=== PATIENT | male | born 1990 | race Caucasian/White ===

== ENCOUNTER 2024-09-16 14:29 | Inpatient (IN) | payer OTHER ==
[2024-09-16 14:47] VITALS: BMI 27.5
[2024-09-16] MEDS ORDERED: guaiFENesin 600 MG TABLET.ER (FP) PO PRN (15:05)
[2024-09-16] MEDS ORDERED: NALOXONE (NARCAN) HCL 4 MG/0.1 ML SPRAY NS PRN (15:05)
[2024-09-16] MEDS ORDERED: POLYETHYLENE GLYCOL (HEALTHYLAX) 3350 17 GM PACKET PO PRN (15:05)
[2024-09-16] MEDS ORDERED: LOPERAMIDE HCL 2 MG CAPSULE PO PRN (15:05)
[2024-09-16] MEDS ORDERED: ACETAMINOPHEN 325 MG TABLET (FP) PO PRN (15:05)
[2024-09-16] MEDS ORDERED: MAGNESIUM HYDROX 2400MG/30ML ORAL SUSPENSION 30 ML CUP PO PRN (15:05)
[2024-09-16] MEDS ORDERED: BENZONATATE 200 MG CAPSULE PO PRN (15:05)
[2024-09-16] MEDS ORDERED: ALBUTEROL SO4 HFA INHALER IH PRN (15:22)
[2024-09-16] MEDS ORDERED: NICOTINE 14 MG/24 HOURS TOPICAL PATCH TD ONE (17:58)
[2024-09-16] MEDS: NICOTINE 14 MG/24 HOURS TOPICAL PATCH TD SCH (18:00)
[2024-09-16] MEDS: PRENATAL VITAMINS W/ FOLIC ACID TABLET (FP) PO SCH (18:01)
[2024-09-16] MEDS: MIRTAZAPINE 15 MG TABLET (FP) PO SCH (21:29)
[2024-09-16] MEDS: THIAMINE 100 MG TABLET PO SCH (21:29)
[2024-09-16] MEDS: BUDESONIDE/FORMETEROL FUMARATE 160/4.5 mcg INHALER IH SCH (21:30)
[2024-09-16] MEDS: MELATONIN 5 MG TABLETS PO SCH (21:31)
[2024-09-17] MEDS: hydrOXYzine PAMOATE 25 MG CAPSULE (FP) PO PRN (09:17)
[2024-09-17 11:03] LABS: HEMATOCRIT 46.8 % (40.1-51.0); HEMOGLOBIN 15.1 g/dL (13.7-17.5); MCHC 32.3 g/dl (32.3-36.5); MEAN CELL VOLUME 99.2 fl (79.0-92.2); MEAN PLT VOLUME 9.3 fl (9.4-12.4); PLATELET COUNT 303 x10^3/uL (163-337); RDW 13.9 % (12.0-15.6)
[2024-09-17 11:04] LABS: POTASSIUM 4.1 mmol/L (3.5-5.1)
[2024-09-17 11:11] LABS: CALCIUM 9.5 mg/dL (8.5-10.1)
[2024-09-17 11:12] LABS: ALBUMIN 3.6 g/dl (3.4-5.0)
[2024-09-17 11:15] LABS: BILIRUBIN,TOTAL 0.3 mg/dL (0.2-1)
[2024-09-17 12:09] LABS: HIV INTERPRETATION NEGATIVE (NEGATIVE)
[2024-09-17] MEDS ORDERED: TUBERCULIN PPD 5 TU/0.1ML VIAL ID ONE (13:37)
[2024-09-17] MEDS: IBUPROFEN 600 MG TABLET (FP) PO PRN (13:50)
[2024-09-17] MEDS: BACLOFEN 10 MG TABLET (FP) PO SCH (15:17)
[2024-09-17 16:04] LABS: URINE APPEARANCE CLEAR; URINE BILIRUBIN NEGATIVE (NEGATIVE); URINE COLOR YELLOW; URINE GLUCOSE (UA) NEGATIVE (NEGATIVE); URINE KETONE NEGATIVE (NEGATIVE)
[2024-09-17 16:05] LABS: URINE LEUK ESTERASE 1+ (NEGATIVE); URINE NITRITE NEGATIVE (NEGATIVE); URINE PROTEIN NEGATIVE (NEGATIVE); URINE UROBILINOGEN 0.2 mg/dL (0.2-1.0)
[2024-09-17 16:11] LABS: EPI CELLS 14 /uL (0-25.1); HYALINE CASTS 3 /uL (0-3.1); URINE BACTERIA 65 /uL (0-1359); URINE RBC 11 /uL (0-23.9); URINE WBC 308 /uL (0-25.8)
[2024-09-17] MEDS: LIDOCAINE PATCH REMOVAL MC SCH (21:28)
[2024-09-17] MEDS: MELATONIN 5 MG TABLETS PO SCH (21:28)
[2024-09-18] MEDS: NICOTINE 21 MG/24 HOURS TOPICAL PATCH TD SCH (09:56)
[2024-09-18] MEDS ORDERED: LIDOCAINE 5% TOPICAL PATCH TP SCH (10:00)
[2024-09-18] MEDS: LIDOCAINE 5% TOPICAL PATCH TP SCH (10:17)
[2024-09-19] MEDS: PHENAZOPYRIDINE HCL 100 MG TABLET (FP) PO ONE (02:19)
[2024-09-19] MEDS: NITROFURANTOIN MACROCRYSTAL 50 MG CAPSULE (FP) PO SCH (02:20)
[2024-09-19] MEDS: hydrOXYzine PAMOATE 25 MG CAPSULE (FP) PO ONE (11:07)
[2024-09-19] MEDS ORDERED: SUVOREXANT 10 MG TABLET PO PRN (22:00)
[2024-09-20] MEDS: hydrOXYzine PAMOATE 25 MG CAPSULE (FP) PO PRN (10:02)
[2024-09-20] MEDS: NICOTINE POLACRILEX 4 MG GUM BUC PRN (11:09)
[2024-09-21] MEDS ORDERED: SODIUM CHLORIDE NASAL SPRAY 44 ML BOTTLE NS PRN (09:28)
[2024-09-22] MEDS: SUVOREXANT 10 MG TABLET PO SCH (21:19)
[2024-09-23] MEDS: BENZOCAINE 20 % GEL TUBE MM PRN (12:10)
[2024-09-23] MEDS: SUVOREXANT 15 MG TABLET PO SCH (21:19)
[2024-09-23] MEDS: LIDOCAINE 2.5%/PRILOCAINE 2.5% 30 GRAM TUBE TP SCH (21:25)
[2024-09-23] MEDS: MIRTAZAPINE 15 MG TABLET (FP) PO SCH (21:58)
[2024-09-24] MEDS: NICOTINE 21 MG/24 HOURS TOPICAL PATCH TD SCH (07:00)
[2024-09-24] MEDS: IBUPROFEN 400 MG TABLET (FP) PO PRN (07:18)
[2024-09-25] MEDS: CALAMINE 8% TOPICAL LOTION 177 ML BOTTLE TP PRN (15:16)
[2024-09-25] MEDS: GABAPENTIN 100 MG CAPSULE PO SCH (16:12)
[2024-09-26] MEDS: SUVOREXANT 15 MG TABLET PO PRN (21:19)
[2024-09-28] MEDS: BENZOCAINE/MENTHOL (CHLORASEPTIC ) LOZENGE MM PRN (20:37)
[2024-09-29] MEDS ORDERED: MINERAL OIL/PETROLAT/WATER TOPICAL CREAM 454 GM JAR TP PRN (11:10)
[2024-09-29] MEDS: SUVOREXANT 20 MG TABLET PO PRN (21:34)
[2024-09-30] MEDS: MINERAL OIL/PETROLAT/WATER TOPICAL CREAM 113 GM JAR TP PRN (14:18)
[2024-10-01] MEDS: MAG HYDROX/AL HYDROX/SIMETH 30 ML UNIT-DOSE CUP PO PRN (02:33)
[2024-10-02] MEDS: SUVOREXANT 20 MG TABLET PO PRN (21:26)
[2024-10-05] MEDS: HYDROCORTISONE 0.5% TOPICAL CREAM 30 GM TUBE TP SCH (21:51)
[2024-10-05] MEDS: BACLOFEN 10 MG TABLET (FP) PO SCH (21:53)
[2024-10-05] MEDS: GABAPENTIN 400 MG CAPSULE PO SCH (21:56)
[2024-10-06] MEDS: SUVOREXANT 20 MG TABLET PO PRN (21:23)
[2024-10-07] MEDS: METHYL SALICYLATE/MENTHOL 30 GM TUBE TP SCH (14:42)
[2024-10-08 06:47] VITALS: BP 106/67; PULSE 68; RESP 18; TEMP 97.7
== END 2024-10-08 10:00 | disposition home or self-care (01) | DRG 772 ==
LOC: YASAS 14:29 → Y3NR 17:35 → Y5N 09-17 10:37
PROVIDERS: ADMIT Allergy & Immunology; ATTEND Psychiatry & Neurology Pain Medicine
PROC: HZ42ZZZ Group Counseling for Substance Abuse Treatment, Cognitive-Behavioral (ICD-10-PCS; principal; 2024-09-16)
DX: F14.20 Cocaine dependence, uncomplicated (principal); F12.20 Cannabis dependence, uncomplicated; F17.210 Nicotine dependence, cigarettes, uncomplicated; F19.282 Other psychoactive substance dependence with psychoactive substance-induced sleep disorder; F19.280 Other psychoactive substance dependence with psychoactive substance-induced anxiety disorder; F19.24 Other psychoactive substance dependence with psychoactive substance-induced mood disorder; J45.40 Moderate persistent asthma, uncomplicated; K21.9 Gastro-esophageal reflux disease without esophagitis; L23.9 Allergic contact dermatitis, unspecified cause; M54.50 Low back pain, unspecified; G89.29 Other chronic pain; R60.0 Localized edema; Z86.19 Personal history of other infectious and parasitic diseases
CPT/HCPCS: 36415; 80053; 80305; 80307; 81003; 82962; 85027; 86780; 86803; 87389; 87491; 87591; 87661; 87811; 93005; 93010; J0475